=== PATIENT | female | born 1975 | race Hispanic/Latino ===

== ENCOUNTER 2020-10-22 21:11 | Emergency (ER) | payer SELFPAY | END 2020-10-22 22:37 | disposition left against medical advice (07) | LOC: ED 21:11 | DX: Z53.21 Procedure and treatment not carried out due to patient leaving prior to being seen by health care provider (principal) ==

== ENCOUNTER 2021-04-21 00:55 | Emergency (ER) | payer SELFPAY ==
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
[2021-04-21 01:49] LABS: Basophils # (Auto) 0.1 K/mm3 (0.0-0.1); Basophils % (Auto) 0.7 % (0.0-1.8); Eosinophils # (Auto) 0.1 K/mm3 (0.0-0.4); Eosinophils % (Auto) 1.6 % (0.0-4.3); Hematocrit 36.2 % (30.3-42.9); Hemoglobin 12.5 gm/dl (10.1-14.3); Lymphocytes # (Auto) 4.2 K/mm3 (1.2-5.4); Lymphocytes % (Auto) 47.3 % (13.4-35.0); Mean Corpuscular HGB Conc 35 % (30-34); Mean Corpuscular Volume 93 fl (79-97); Monocytes # (Auto) 0.7 K/mm3 (0.0-0.8); Monocytes % (Auto) 7.9 % (0.0-7.3); Platelet Count 229 K/mm3 (140-440); Red Blood Count 3.89 M/mm3 (3.65-5.03); Red Cell Distribution Width 13.2 % (13.2-15.2)
[2021-04-21 02:05] LABS: Alanine Aminotransferase 37 units/L (7-56); Albumin 4.4 g/dL (3.9-5); BUN/Creatinine Ratio 17; Blood Urea Nitrogen 15 mg/dL (7-17); Hemolysis Index 3
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
[2021-04-21 02:57] LABS: Bilirubin,Urine NEG (Negative); Blood,Urine NEG (Negative); Calcium Oxalate Crystals,Urine 3+; Color,Urine Yellow (Yellow); Mucus,Urine 2+ /HPF
[2021-04-21 03:01] LABS: Amphetamine Screen,Urine PRESUMPTIVE POSITIVE; Benzodiazepines Screen,Urine PRESUMPTIVE NEGATIVE; Cannabinoid Screen,Urine PRESUMPTIVE POSITIVE; Cocaine Screen,Urine PRESUMPTIVE POSITIVE; Methadone Screen,Urine PRESUMPTIVE NEGATIVE; Opiate Screen,Urine PRESUMPTIVE NEGATIVE
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
[2021-04-21] MEDS: levoFLOXacin 500 MG TAB PO SCH (10:37)
[2021-04-21] MEDS: SERTRALINE 25 MG TAB PO SCH (10:37)
[2021-04-21] MEDS ORDERED: traZODone 50 MG TAB PO SCH (22:00)
[2021-04-22 09:24] VITALS: BP 137/90
--- NOTE | 2021-04-22 09:39 | Progress Note ---
Subjective - Reason for Consult Consult date: 04/22/21 Reason for consult: SI - Chief Complaint Chief complaint: The patient was seen today. She says she's not feeling any better. The patient endorses suicidal thoughts. She says "I'll find a way. Maybe hang myself or get a gun." She denies hallucinations of any kind. She is asking for something for anxiety. She says "my mind starts racing and I start shaking." REVIEW OF SYSTEMS Constitutional: Negative for weight loss ENT: Negative for stridor Respiratory: Negative for cough or hemoptysis All other systems reviewed and are negative MENTAL STATUS EXAMINATION General Appearance and Behavior: Age appropriate, dressed appropriately, calm and cooperative Cooperation: Participating Psychomotor Behavior: psychomotor normal Mood: Depressed Affect and affective range: Congruent with stated mood, flat Thought Process: goal directed Thought Content: Suicidal/Homicidal Speech: Normal volume, Regular rate and rhythm, Intellectual Functioning: Average Suicidal Ideation: Yes Homicidal Ideation: denies Hallucinations: Denies Delusions: None elicited Impulse Control: Unimpaired Insight and Judgment: Limited insight and judgment Memory: Normal Attention: Undivided Orientation: Alert, oriented Assessment and Plan (1)Major Depressive Disorder Treatment plan 1013 Zoloft 25mg po daily Trazodone 50mg po qhs Start Vistaril 25mg po BID Risks, benefits and alternatives of medications discussed with the patient, questions answered and consent obtained from patient. PSYCHOTHERAPY: Supportive psychotherapy provided MEDICAL: Per primary team DELIRIUM PRECAUTIONS: Please re-orient patient frequently, keep lights on during the day, and minimize benzodiazepines and opiates as these medications could w orsen patient's confusion. 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 FOLLOW-UP: Will follow. Thank you for the consult. Please contact with any questions and/or concerns. Case staffed with Dr. Rodriguez Mental Status Exam - Vital signs Last Vital Signs Temp 98.2 F 04/22/21 08:00 Pulse 86 04/22/21 08:00 Resp 18 04/22/21 08:00 BP 137/90 04/22/21 08:00 Pulse Ox 98 04/22/21 08:00
[2021-04-22] MEDS ORDERED: hydrOXYzine PAMOATE 25 MG CAP PO SCH (10:00)
[2021-04-22] MEDS: SERTRALINE 25 MG TAB PO SCH (10:26)
[2021-04-22] MEDS: levoFLOXacin 500 MG TAB PO SCH (10:26)
[2021-04-22] MEDS ORDERED: LORazepam 2 MG/ML VIAL IM PRN (11:37)
[2021-04-22] MEDS ORDERED: diphenhydrAMINE 25 MG CAP PO PRN (11:37)
--- NOTE | 2021-04-22 11:39 | Event Note ---
Date: 04/22/21 The patient was evaluated in the emergency department for symptoms described in the history of present illness. He/she was evaluated in the context of the global COVID-19 pandemic, which necessitated consideration that the patient might be at risk for infection with the virus that causes COVID-19. Institutional protocols and algorithms that pertain to the evaluation of patients at risk for COVID-19 are in a state of rapid change based on information released by regulatory bodies including the CDC and federal and state organizations. These policies and algorithms were followed during the patient's care in the emergency department. Please note that these policies, procedures and recommendations changed on a rapid basis. Laboratory studies, vital signs, nursing documentation, ER documentation, and psychiatric documentation are reviewed and appreciated. Nursing team reports no acute events this morning or concerns. The patient is awake and ambulating and does not appear to be in any acute distress. The patient was deemed medically suitable for psychiatric disposition and placement during her initial ER evaluation. The patient continues to remain medically suitable for psychiatric placement and disposition. sHe is currently pending psychiatric placement. Urinalysis reviewed and appreciated. Demonstrates pyuria with 11 epithelial cells. No bacteriuria is noted. This is unlikely to represent bacterial urinary tract infection. Cultures pending at this time. Vital Signs 04/21/21 04/21/21 04/21/21 01:08 08:58 09:02 Temperature 98.6 F 99 F Pulse Rate 86 98 H Respiratory 18 16 16 Rate Blood Pressure 140/83 139/70 [Left] O2 Sat by Pulse 98 98 98 Oximetry 04/21/21 04/21/21 04/22/21 19:24 19:41 07:44 Temperature 98.7 F Pulse Rate 70 Respiratory 16 18 Rate Blood Pressure 147/78 [Left] O2 Sat by Pulse 98 97 98 Oximetry 04/22/21 08:00 Temperature 98.2 F Pulse Rate 86 Respiratory 18 Rate Blood Pressure 137/90 [Left] O2 Sat by Pulse 98 Oximetry Lab Results 04/21/21 04/21/21 04/21/21 Range/Units 01:27 01:27 01:27 WBC 8.8 (4.5-11.0) K/mm3 RBC 3.89 (3.65-5.03) M/mm3 Hgb 12.5 (10.1-14.3) gm/dl Hct 36.2 (30.3-42.9) % MCV 93 (79-97) fl MCH 32 (28-32) pg MCHC 35 H (30-34) % RDW 13.2 (13.2-15.2) % Plt Count 229 (140-440) K/mm3 Lymph % (Auto) 47.3 H (13.4-35.0) % [place] % (Auto) 7.9 H (0.0-7.3) % Eos % (Auto) 1.6 (0.0-4.3) % Baso % (Auto) 0.7 (0.0-1.8) % Lymph # (Auto) 4.2 (1.2-5.4) K/mm3 [place] # (Auto) 0.7 (0.0-0.8) K/mm3 Eos # (Auto) 0.1 (0.0-0.4) K/mm3 Baso # (Auto) 0.1 (0.0-0.1) K/mm3 Seg Neutrophils % 42.5 (40.0-70.0) % Seg Neutrophils # 3.8 (1.8-7.7) K/mm3 Sodium 142 (137-145) mmol/L Potassium 3.7 (3.6-5.0) mmol/L Chloride 101.9 (98-107) mmol/L Carbon Dioxide 32 H (22-30) mmol/L Anion Gap 12 mmol/L BUN 15 (7-17) mg/dL Creatinine 0.9 (0.6-1.2) mg/dL Estimated GFR > 60 ml/min BUN/Creatinine Ratio 17 % Glucose 127 H (65-100) mg/dL Calcium 9.0 (8.4-10.2) mg/dL Total Bilirubin 0.40 (0.1-1.2) mg/dL AST 34 (5-40) units/L ALT 37 (7-56) units/L Alkaline Phosphatase 87 (35-129) units/L Total Protein 7.6 (6.3-8.2) g/dL Albumin 4.4 (3.9-5) g/dL Albumin/Globulin Ratio 1.4 % HCG, Qual (Negative) Urine Color (Yellow) Urine Turbidity (Clear) Urine pH (5.0-7.0) Ur Specific [place] (1.003-1.030) Urine Protein (Negative) mg/dL Urine Glucose (UA) (Negative) mg/dL Urine Ketones (Negative) mg/dL Urine Blood (Negative) Urine Nitrite (Negative) Urine Bilirubin (Negative) Urine Urobilinogen (<2.0) mg/dL Ur Leukocyte Esterase (Negative) Urine WBC (Auto) (0.0-6.0) /HPF Urine RBC (Auto) (0.0-6.0) /HPF U Epithel Cells (Auto) (0-13.0) /HPF Calcium Oxalate Crystal Urine Mucus /HPF Salicylates < 0.3 L (2.8-20.0) mg/dL Urine Opiates Screen Urine Methadone Screen Acetaminophen (10.0-30.0) ug/mL Ur Barbiturates Screen Ur Phencyclidine Scrn Ur Amphetamines Screen U Benzodiazepines Scrn Urine Cocaine Screen U Marijuana (THC) Screen Drugs of Abuse Note Plasma/Serum Alcohol (0-0.07) % Coronavirus (PCR) (Negative) 04/21/21 04/21/21 04/21/21 Range/Units 01:27 01:27 01:27 WBC (4.5-11.0) K/mm3 RBC (3.65-5.03) M/mm3 Hgb (10.1-14.3) gm/dl Hct (30.3-42.9) % MCV (79-97) fl MCH (28-32) pg MCHC (30-34) % RDW (13.2-15.2) % Plt Count (140-440) K/mm3 Lymph % (Auto) (13.4-35.0) % [place] % (Auto) (0.0-7.3) % Eos % (Auto) (0.0-4.3) % Baso % (Auto) (0.0-1.8) % Lymph # (Auto) (1.2-5.4) K/mm3 [place] # (Auto) (0.0-0.8) K/mm3 Eos # (Auto) (0.0-0.4) K/mm3 Baso # (Auto) (0.0-0.1) K/mm3 Seg Neutrophils % (40.0-70.0) % Seg Neutrophils # (1.8-7.7) K/mm3 Sodium (137-145) mmol/L Potassium (3.6-5.0) mmol/L Chloride (98-107) mmol/L Carbon Dioxide (22-30) mmol/L Anion Gap mmol/L BUN (7-17) mg/dL Creatinine (0.6-1.2) mg/dL Estimated GFR ml/min BUN/Creatinine Ratio % Glucose (65-100) mg/dL Calcium (8.4-10.2) mg/dL Total Bilirubin (0.1-1.2) mg/dL AST (5-40) units/L ALT (7-56) units/L Alkaline Phosphatase (35-129) units/L Total Protein (6.3-8.2) g/dL Albumin (3.9-5) g/dL Albumin/Globulin Ratio % HCG, Qual Negative (Negative) Urine Color (Yellow) Urine Turbidity (Clear) Urine pH (5.0-7.0) Ur Specific [place] (1.003-1.030) Urine Protein (Negative) mg/dL Urine Glucose (UA) (Negative) mg/dL Urine Ketones (Negative) mg/dL Urine Blood (Negative) Urine Nitrite (Negative) Urine Bilirubin (Negative) Urine Urobilinogen (<2.0) mg/dL Ur Leukocyte Esterase (Negative) Urine WBC (Auto) (0.0-6.0) /HPF Urine RBC (Auto) (0.0-6.0) /HPF U Epithel Cells (Auto) (0-13.0) /HPF Calcium Oxalate Crystal Urine Mucus /HPF Salicylates (2.8-20.0) mg/dL Urine Opiates Screen Urine Methadone Screen Acetaminophen 5.0 L (10.0-30.0) ug/mL Ur Barbiturates Screen Ur Phencyclidine Scrn Ur Amphetamines Screen U Benzodiazepines Scrn Urine Cocaine Screen U Marijuana (THC) Screen Drugs of Abuse Note Plasma/Serum Alcohol 0.10 H (0-0.07) % Coronavirus (PCR) (Negative) 04/21/21 04/21/21 04/21/21 Range/Units 02:37 02:37 Unknown WBC (4.5-11.0) K/mm3 RBC (3.65-5.03) M/mm3 Hgb (10.1-14.3) gm/dl Hct (30.3-42.9) % MCV (79-97) fl MCH (28-32) pg MCHC (30-34) % RDW (13.2-15.2) % Plt Count (140-440) K/mm3 Lymph % (Auto) (13.4-35.0) % [place] % (Auto) (0.0-7.3) % Eos % (Auto) (0.0-4.3) % Baso % (Auto) (0.0-1.8) % Lymph # (Auto) (1.2-5.4) K/mm3 [place] # (Auto) (0.0-0.8) K/mm3 Eos # (Auto) (0.0-0.4) K/mm3 Baso # (Auto) (0.0-0.1) K/mm3 Seg Neutrophils % (40.0-70.0) % Seg Neutrophils # (1.8-7.7) K/mm3 Sodium (137-145) mmol/L Potassium (3.6-5.0) mmol/L Chloride (98-107) mmol/L Carbon Dioxide (22-30) mmol/L Anion Gap mmol/L BUN (7-17) mg/dL Creatinine (0.6-1.2) mg/dL Estimated GFR ml/min BUN/Creatinine Ratio % Glucose (65-100) mg/dL Calcium (8.4-10.2) mg/dL Total Bilirubin (0.1-1.2) mg/dL AST (5-40) units/L ALT (7-56) units/L Alkaline Phosphatase (35-129) units/L Total Protein (6.3-8.2) g/dL Albumin (3.9-5) g/dL Albumin/Globulin Ratio % HCG, Qual (Negative) Urine Color Yellow (Yellow) Urine Turbidity Slightly-cloudy (Clear) Urine pH 5.0 (5.0-7.0) Ur Specific [place] 1.024 (1.003-1.030) Urine Protein 30 mg/dl (Negative) mg/dL Urine Glucose (UA) Neg (Negative) mg/dL Urine Ketones Neg (Negative) mg/dL Urine Blood Neg (Negative) Urine Nitrite Neg (Negative) Urine Bilirubin Neg (Negative) Urine Urobilinogen 4.0 (<2.0) mg/dL Ur Leukocyte Esterase Tr (Negative) Urine WBC (Auto) 24.0 H (0.0-6.0) /HPF Urine RBC (Auto) 12.0 (0.0-6.0) /HPF U Epithel Cells (Auto) 11.0 (0-13.0) /HPF Calcium Oxalate Crystal 3+ Urine Mucus 2+ /HPF Salicylates (2.8-20.0) mg/dL Urine Opiates Screen Presumptive negative Urine Methadone Screen Presumptive negative Acetaminophen (10.0-30.0) ug/mL Ur Barbiturates Screen Presumptive negative Ur Phencyclidine Scrn Presumptive negative Ur Amphetamines Screen Presumptive positive U Benzodiazepines Scrn Presumptive negative Urine Cocaine Screen Presumptive positive U Marijuana (THC) Screen Presumptive positive Drugs of Abuse Note Disclamer Plasma/Serum Alcohol (0-0.07) % Coronavirus (PCR) Negative (Negative)
== END 2021-04-22 15:53 ==
LOC: ED 00:55
DX: S09.90XA Unspecified injury of head, initial encounter (principal); R45.851 Suicidal ideations; Z98.890 Other specified postprocedural states; F17.290 Nicotine dependence, other tobacco product, uncomplicated; Z20.822 Contact with and (suspected) exposure to COVID-19; Y08.89XA Assault by other specified means, initial encounter; Y93.89 Activity, other specified; Y92.89 Other specified places as the place of occurrence of the external cause; Y99.8 Other external cause status
CPT/HCPCS: 36415; 70450; 80053; 80307; 81001; 84703; 85025; 87076; 87086; 87186; 99285; Q0177; U0003; 80320; G0480